=== PATIENT | female | born 1995 | race Caucasian/White ===

== ENCOUNTER 2024-02-20 13:25 | Outpatient (RCR) | payer BC, SELFPAY ==
--- NOTE | ~2024-02-20 | US_ITS ---
EXAMINATION: US OB follow up DATE: 02/20/2024 14:56 INDICATION: Uncertain dates. . TECHNIQUE: Real-time ultrasound of the pelvis was performed. COMPARISON: None. FINDINGS: There is a single living fetus in vertex presentation. The placenta is anterior and fundal, 10.1 cm from the cervix. heart rate is 134 beats per minute (bpm). The cervical length is 3.7 cm on tra nsabdominal images, which is normal. The amniotic fluid index is 8.3 cm, which is normal. The following biometric data were obtained: Biparietal diameter (BPD): 9.4 cm; head circumference (HC): 34.8 cm; abdominal circumference (AC): 36 .0 cm; femur length (FL): 7.8 cm. These measurements are concordant. Estimated weight is 3864 g +/- 580 g, which correlates with the 70th percentile when 02/20/24 is used as estimated date of delivery. As single measurements, these parameters are each equal to the following estimated gestational ages: BPD: 38 weeks 1 days. HC: 40 weeks 3 days. AC: 39 weeks 6 days. FL: 39 weeks 6 days. estimated gestational age based solely on measurements from this exam is 39 weeks 4 days +/- 2 weeks 5 days. IMPRESSION: 1. Single living fetus in vertex presentation. 2. Estimated weight is 3864 g +/- 580 g, which correlates with the 70th percentile when 4 is used as estimated date of delivery. Reviewed, dictated and finalized at location A. IMPRESSION: 1. Single living fetus in vertex presentation. 2. Estimated weight is 3864 g +/- 580 g, which correlates with the 70th percentile when 02/20/24 is used as estimated date of delivery.
[2024-02-20 15:01] VITALS: PULSE 81
== END 2024-05-20 23:59 | disposition home or self-care (01) ==
LOC: ANHOBOP 13:25
PROVIDERS: PCP Obstetrics & Gynecology; Visit Provider Obstetrics & Gynecology
DX: Z36.87 Encounter for antenatal screening for uncertain dates (principal)
CPT/HCPCS: 59025; 76816